=== PATIENT | female | born 1960 | race Caucasian/White ===

== ENCOUNTER 2017-10-02 01:30 | Emergency (ER) | payer MEDICARE, MEDICAID, SELFPAY | END 2017-10-02 04:31 | disposition home or self-care (01) | PROVIDERS: Emergency Provider Emergency Medicine; Visit Provider Emergency Medicine | DX: R10.9 Unspecified abdominal pain (principal) | CPT/HCPCS: 71020; 74176; 80053; 81001; 82150; 83690; 85025; 96374; 99283 ==